=== PATIENT | female | born 1955 | race Two or more races ===

== ENCOUNTER 2020-11-25 21:07 | Inpatient (IN) | payer OTHER ==
[~2020-11-25] VITALS: Ht 152.4 cm; Wt 71.5 kg
[2020-11-25 22:12] LABS: Hematocrit 42.8 % (36.0-46.0); Mean Corpuscular Hemoglobin 31.8 pg (28.0-32.0); Mean Corpuscular Hgb Conc. 35.1 g/dL (32.0-36.0); Mean Corpuscular Volume 90.8 fL (80.0-100.0); Platelet Count (auto) 233 10^3/uL (140-450); Red Blood Cells 4.71 10^6/uL (4.0-5.20); Red Cell Distribution Width 13.6 % (11.8-14.3); White Blood Cell 8.5 10^3/uL (4.4-10.8)
[2020-11-25 22:19] LABS: Basophils % (manual) 0 (0.0-2.0); Blast Cells 0; Metamyelocytes % 0; Myelocytes % 0; Promyelocytes % 0; Reactive Lymphocytes 0
[2020-11-25 22:33] LABS: INR 1.01 (0.9-1.15); Partial Thromboplastin Time 25.8 sec (23.0-31.2)
[2020-11-25 22:34] LABS: Band Neutrophils % (manual) 3; Eosinophils % (manual) 2 (0-7); Lymphocytes % (manual) 55 (10.0-50.0); Monocytes % (manual) 3 (0-12)
[2020-11-25 22:37] LABS: Magnesium 2.4 mg/dL (1.6-2.6)
[2020-11-25 22:41] LABS: Anion Gap 8 (5-15); Blood Urea Nitrogen 15 mg/dL (7-18); Calcium 9.8 mg/dL (8.5-10.1); Carbon Dioxide 27 mmol/L (21-32); Chloride 105 mmol/L (98-107); Glucose 116 mg/dL (74-106); Potassium 3.7 mmol/L (3.5-5.1); Sodium 140 mmol/L (136-145)
[2020-11-25 22:48] LABS: Alanine Aminotransferase 30 U/L (13-56); Alkaline Phosphatase 127 U/L (45-117); Aspartate Aminotransferase 12 U/L (15-37); BUN/Creatinine Ratio 21.7; Bilirubin, Total 0.3 mg/dL (0.2-1.0); GFR African American 110 mL/min; GFR Non-African American 91 mL/min; Total Protein 7.8 g/dL (6.4-8.2)
[2020-11-26] MEDS ORDERED: levoFLOXacin 750MG 150 ML IV ONE (02:15)
[2020-11-26] MEDS ORDERED: metroNIDAZOLE 500MG/100ML 100 ML IV ONE (02:15)
[2020-11-26] MEDS ORDERED: ONDANSETRON HCL 4 MG/2 ML VIAL IV ONE (02:30)
[2020-11-26] MEDS ORDERED: MORPHINE SULFATE 4 MG/ML SYR/VIAL IV ONE (02:30)
[2020-11-26] MEDS ORDERED: SODIUM CHLORIDE 0.9% 1,000 ML IV ONE (02:30)
[2020-11-26] MEDS: D5W/SOD CHL 0.45% 1,000 ML IV SCH ×2 (05:00→18:09)
[2020-11-26] MEDS ORDERED: ONDANSETRON HCL 4 MG/2 ML VIAL IV PRN (05:00)
[2020-11-26] MEDS ORDERED: MORPHINE SULF INJ 2 MG/ML SYRINGE 1ML IV PRN (05:00)
[2020-11-26] MEDS ORDERED: HYDROcodone-ACET 5/325MG TAB PO PRN (05:00)
[2020-11-26] MEDS ORDERED: NITROGLYCERIN 0.4 MG SL TAB SL PRN (05:00)
[2020-11-26] MEDS ORDERED: hydrALAZINE HCL 20 MG/ML VL IV PRN (05:15)
[2020-11-26] MEDS: metroNIDAZOLE 500MG/100ML 100 ML IV SCH ×2 (05:38→14:03)
[2020-11-26 07:20] LABS: Hematocrit 39.4 % (36.0-46.0); Hemoglobin 13.4 g/dL (12.2-16.2); Mean Corpuscular Hemoglobin 31.3 pg (28.0-32.0); Mean Corpuscular Volume 92.1 fL (80.0-100.0); Platelet Count (auto) 203 10^3/uL (140-450); Red Blood Cells 4.27 10^6/uL (4.0-5.20); White Blood Cell 7.4 10^3/uL (4.4-10.8)
[2020-11-26 07:39] LABS: Band Neutrophils % (manual) 0; Basophils % (manual) 0 (0.0-2.0); Blast Cells 0; Myelocytes % 0; Promyelocytes % 0; Reactive Lymphocytes 0
[2020-11-26 07:44] LABS: Albumin 3.2 g/dL (3.4-5.0); Calcium 8.4 mg/dL (8.5-10.1); Potassium 3.7 mmol/L (3.5-5.1)
[2020-11-26 07:47] LABS: BUN/Creatinine Ratio 23.2; Bilirubin, Total 0.4 mg/dL (0.2-1.0); Total Protein 6.3 g/dL (6.4-8.2)
[2020-11-26 08:21] LABS: Eosinophils % (manual) 2 (0-7); Lymphocytes % (manual) 67 (10.0-50.0); Metamyelocytes % 2; Monocytes % (manual) 2 (0-12)
[2020-11-26 08:39] VITALS: BP 112/68
[2020-11-26] MEDS: cefTRIAXone 1GM/50ML D5W 50 ML IV SCH (08:45)
[2020-11-26] MEDS: FAMOTIDINE (10MG/ML) 2ML VL IV SCH (08:58)
[2020-11-26 13:00] VITALS: BP 124/74
[2020-11-26] MEDS ORDERED: IOHEXOL 300 MG/ML 100ML BOTTLE IJ ONE (15:09)
[2020-11-26 17:00] VITALS: BP 134/83
[2020-11-26] MEDS ORDERED: ALBUMIN 25% 50 ML IV ONE (20:09)
[2020-11-26 21:25] VITALS: BP 142/71
[2020-11-27] MEDS: metroNIDAZOLE 500MG/100ML 100 ML IV SCH ×4 (00:03→21:31)
[2020-11-27] MEDS: MORPHINE SULFATE 4 MG/ML SYR/VIAL IV PRN (00:04)
[2020-11-27 04:59] VITALS: BP 109/72
[2020-11-27 06:14] LABS: Basophils # (auto) 0 10 ^3/uL (0-0.2); Basophils % (auto) 0.2 % (0.0-2.0); Eosinophils # (auto) 0.2 10 ^3/uL (0-0.8); Hematocrit 40.8 % (36.0-46.0); Hemoglobin 13.9 g/dL (12.2-16.2); Lymphocytes # (auto) 3.1 10 ^3/uL (0.4-5.4); Lymphocytes % (auto) 49.6 % (10.0-50.0); Mean Corpuscular Hemoglobin 31.3 pg (28.0-32.0); Mean Corpuscular Hgb Conc. 34.2 g/dL (32.0-36.0); Mean Corpuscular Volume 91.5 fL (80.0-100.0); Monocytes # (auto) 0.5 10 ^3/uL (0-1.3); Monocytes % (auto) 7.8 % (0.0-12.0); Neutrophils # (auto) 2.5 10 ^3/uL (1.6-8.6); Neutrophils % (auto) 39.4 % (37.0-80.0); Nucleated Red Blood Cells % 0.2 %; Platelet Count (auto) 200 10^3/uL (140-450); Red Blood Cells 4.46 10^6/uL (4.0-5.20); Red Cell Distribution Width 13.8 % (11.8-14.3); White Blood Cell 6.3 10^3/uL (4.4-10.8)
[2020-11-27 06:30] LABS: Albumin 3.4 g/dL (3.4-5.0); Calcium 8.6 mg/dL (8.5-10.1); Potassium 3.8 mmol/L (3.5-5.1)
[2020-11-27 06:34] LABS: BUN/Creatinine Ratio 14.9; Bilirubin, Total 0.5 mg/dL (0.2-1.0); Total Protein 6.7 g/dL (6.4-8.2)
[2020-11-27] MEDS: D5W/SOD CHL 0.45% 1,000 ML IV SCH ×3 (06:54→21:31)
[2020-11-27] MEDS: FAMOTIDINE (10MG/ML) 2ML VL IV SCH (09:11)
[2020-11-27] MEDS: cefTRIAXone 1GM/50ML D5W 50 ML IV SCH (09:11)
[2020-11-27 09:13] VITALS: BP 113/70
[2020-11-27 13:00] VITALS: BP 133/79
[2020-11-27 16:50] VITALS: BP 114/57
[2020-11-27] MEDS: ACETAMINOPHEN 325 MG TAB PO PRN (20:14)
[2020-11-27 22:00] VITALS: BP 128/78
[2020-11-28 05:00] VITALS: BP 144/72
[2020-11-28] MEDS: metroNIDAZOLE 500MG/100ML 100 ML IV SCH ×3 (05:32→21:37)
[2020-11-28 08:00] VITALS: BP 139/75
[2020-11-28] MEDS ORDERED: ADENOSINE 57 MG in GIVE UN-DILUTED 0 ML IV STA (08:38)
[2020-11-28 09:26] VITALS: BP 168/93
[2020-11-28] MEDS: D5W/SOD CHL 0.45% 1,000 ML IV SCH (10:48)
[2020-11-28] MEDS: FAMOTIDINE (10MG/ML) 2ML VL IV SCH (10:48)
[2020-11-28] MEDS: cefTRIAXone 1GM/50ML D5W 50 ML IV SCH (10:48)
[2020-11-28 12:01] VITALS: BP 148/80
[2020-11-28 16:00] VITALS: BP 145/81
[2020-11-28 22:00] VITALS: BP 143/89
[2020-11-29 05:08] VITALS: BP 122/65
[2020-11-29] MEDS: metroNIDAZOLE 500MG/100ML 100 ML IV SCH ×3 (05:32→21:33)
[2020-11-29] MEDS: D5W/SOD CHL 0.45% 1,000 ML IV SCH ×2 (05:32→13:23)
[2020-11-29 08:15] VITALS: BP 122/68
[2020-11-29 09:11] VITALS: BP 122/68
[2020-11-29] MEDS: cefTRIAXone 1GM/50ML D5W 50 ML IV SCH (09:20)
[2020-11-29] MEDS: FAMOTIDINE (10MG/ML) 2ML VL IV SCH (09:20)
[2020-11-29] MEDS: MORPHINE SULFATE 4 MG/ML SYR/VIAL IV PRN ×2 (09:21→13:24)
[2020-11-29] MEDS: BUPIVACAINE 0.25% INJ 50ML VIAL ONE ×2 (09:23→11:04)
[2020-11-29] MEDS ORDERED: MEPERIDINE HCL (25 MG/ML) 1ML VIAL ONE (09:49)
[2020-11-29] MEDS ORDERED: ROCURONIUM 10MG/ML 10ML VIAL IV ONE (09:50)
[2020-11-29] MEDS ORDERED: MIDAZOLAM HCL 1MG/1ML-2 ML VIAL ONE (09:50)
[2020-11-29] MEDS ORDERED: GLYCOPYRROLATE 0.2 MG/ML 1ML VIAL ONE (09:50)
[2020-11-29] MEDS ORDERED: fentaNYL CITRATE 100 MCG/2 ML VL ONE (09:50)
[2020-11-29] MEDS ORDERED: SODIUM CHLORIDE LOCK 20 ML ONE (09:50)
[2020-11-29] MEDS ORDERED: NEOSTIGMINE 1 MG/ML INJ (10mg/10ML VIAL) ONE (09:50)
[2020-11-29] MEDS ORDERED: ONDANSETRON HCL 4 MG/2 ML VIAL ONE (09:50)
[2020-11-29] MEDS ORDERED: ceFAZolin 1GM/50ML 50 ML IV ONE (09:56)
[2020-11-29 16:11] VITALS: BP 110/64
[2020-11-29] MEDS: ACETAMINOPHEN 325 MG TAB PO PRN (21:33)
[2020-11-29 22:00] VITALS: BP 126/74
[2020-11-30 05:03] VITALS: BP 115/67
[2020-11-30] MEDS: metroNIDAZOLE 500MG/100ML 100 ML IV SCH (05:16)
[2020-11-30 07:48] LABS: Basophils # (auto) 0 10 ^3/uL (0-0.2); Basophils % (auto) 0.1 % (0.0-2.0); Eosinophils # (auto) 0.1 10 ^3/uL (0-0.8); Hematocrit 40.5 % (36.0-46.0); Hemoglobin 13.8 g/dL (12.2-16.2); Lymphocytes # (auto) 2.9 10 ^3/uL (0.4-5.4); Lymphocytes % (auto) 33.4 % (10.0-50.0); Mean Corpuscular Hemoglobin 31.1 pg (28.0-32.0); Mean Corpuscular Hgb Conc. 34.1 g/dL (32.0-36.0); Mean Corpuscular Volume 91.5 fL (80.0-100.0); Monocytes # (auto) 0.7 10 ^3/uL (0-1.3); Monocytes % (auto) 7.7 % (0.0-12.0); Neutrophils # (auto) 5.1 10 ^3/uL (1.6-8.6); Neutrophils % (auto) 57.8 % (37.0-80.0); Platelet Count (auto) 205 10^3/uL (140-450); Red Blood Cells 4.43 10^6/uL (4.0-5.20); Red Cell Distribution Width 13.9 % (11.8-14.3); White Blood Cell 8.8 10^3/uL (4.4-10.8)
[2020-11-30 08:02] LABS: Potassium 3.3 mmol/L (3.5-5.1)
[2020-11-30 08:15] VITALS: BP 117/73
[2020-11-30 08:15] LABS: Albumin 3.3 g/dL (3.4-5.0); BUN/Creatinine Ratio 17.2; Bilirubin, Total 0.8 mg/dL (0.2-1.0); Calcium 8.2 mg/dL (8.5-10.1); Total Protein 6.6 g/dL (6.4-8.2)
[2020-11-30 08:57] VITALS: BP 117/73
[2020-11-30] MEDS: cefTRIAXone 1GM/50ML D5W 50 ML IV SCH (08:59)
[2020-11-30] MEDS ORDERED: HYDR-4902 PO (10:27)
[2020-11-30 12:04] VITALS: BP 117/73
== END 2020-11-30 13:08 | disposition home or self-care (01) | DRG 419 ==
LOC: ER 21:07 → TELE 21:08 → TELE-CENTR 11-26 06:41
PROVIDERS: ADMIT Nurse Practitioner Family; ATTEND Hospitalist
PROC: 0FT44ZZ Resection of Gallbladder, Percutaneous Endoscopic Approach (ICD-10-PCS; principal; 2020-11-29 09:58)
DX: K80.12 Calculus of gallbladder with acute and chronic cholecystitis without obstruction (principal); K76.0 Fatty (change of) liver, not elsewhere classified; D17.71 Benign lipomatous neoplasm of kidney; I10 Essential (primary) hypertension; E66.9 Obesity, unspecified; Z71.3 Dietary counseling and surveillance; Z68.29 Body mass index [BMI] 29.0-29.9, adult; Z20.822 Contact with and (suspected) exposure to COVID-19; R73.03 Prediabetes; E78.5 Hyperlipidemia, unspecified; Z82.49 Family history of ischemic heart disease and other diseases of the circulatory system
CPT/HCPCS: 36415; 71045; 74177; 76705; 78452; 80053; 83690; 83735; 83880; 84484; 85007; 85025; 85027; 85610; 85730; 86850; 86900; 86901; 87426; 93005; 93017; 93306; 96365; 96366; 96368; 96375; G0378; J0153; J0690; J0696; J1956; J2250; J2405; J3490

== ENCOUNTER 2021-06-06 10:52 | Emergency (ER) | payer OTHER ==
[~2021-06-06] VITALS: Ht 154.9 cm; Wt 67.1 kg
[~2021-06-06 10:52] MED LIST: HYDR-4902 PO
[2021-06-06] MEDS ORDERED: SODIUM CHLORIDE 0.9% 500 ML IVB ONE (11:15)
[2021-06-06] MEDS ORDERED: KETOROLAC TROMETH 30 MG/ML 1ML VIAL IV ONE (11:15)
[2021-06-06] MEDS ORDERED: ONDANSETRON HCL 4 MG/2 ML VIAL IV ONE (11:15)
[2021-06-06 12:00] LABS: Urine Bacteria NONE SEEN /hpf (None Seen); Urine Blood Negative /uL (Negative); Urine Hyaline Cast FEW /lpf (0 - 2); Urine Specific Gravity 1.007 (1.001-1.035); Urine WBC 3 /hpf (0 - 5)
[2021-06-06 12:02] LABS: Basophils # (auto) 0 10 ^3/uL (0-0.2); Basophils % (auto) 0.1 % (0.0-2.0); Eosinophils # (auto) 0 10 ^3/uL (0-0.8); Eosinophils % (auto) 0.6 % (0.0-7.0); Hematocrit 45.7 % (36.0-46.0); Hemoglobin 15.2 g/dL (12.2-16.2); Lymphocytes # (auto) 3.7 10 ^3/uL (0.4-5.4); Lymphocytes % (auto) 46.7 % (10.0-50.0); Mean Corpuscular Hemoglobin 31.1 pg (28.0-32.0); Mean Corpuscular Hgb Conc. 33.3 g/dL (32.0-36.0); Mean Corpuscular Volume 93.3 fL (80.0-100.0); Monocytes # (auto) 0.5 10 ^3/uL (0-1.3); Monocytes % (auto) 6.5 % (0.0-12.0); Neutrophils # (auto) 3.7 10 ^3/uL (1.6-8.6); Neutrophils % (auto) 46.1 % (37.0-80.0); Nucleated Red Blood Cells % 0.1 %; Red Blood Cells 4.89 10^6/uL (4.0-5.20); Red Cell Distribution Width 13.9 % (11.8-14.3); White Blood Cell 7.9 10^3/uL (4.4-10.8)
[2021-06-06 12:18] LABS: Albumin 3.7 g/dL (3.4-5.0); Potassium 3.9 mmol/L (3.5-5.1)
[2021-06-06 12:21] LABS: BUN/Creatinine Ratio 18.5; Bilirubin, Total 0.3 mg/dL (0.2-1.0); Total Protein 7.4 g/dL (6.4-8.2)
[2021-06-06 13:41] VITALS: BP 170/86
== END 2021-06-06 13:55 | disposition home or self-care (01) ==
LOC: ER 10:52
DX: R10.31 Right lower quadrant pain (principal); E11.9 Type 2 diabetes mellitus without complications; E78.5 Hyperlipidemia, unspecified; I10 Essential (primary) hypertension; Z90.49 Acquired absence of other specified parts of digestive tract; Z79.899 Other long term (current) drug therapy
CPT/HCPCS: 36415; 74176; 80053; 81001; 83690; 85025; 96361; 96374; 96375; 99284; J1885; J2405; J7040

== ENCOUNTER 2021-11-16 14:44 | Emergency (ER) | payer OTHER ==
[~2021-11-16] VITALS: Ht 154.9 cm; Wt 67.1 kg
[2021-11-16 15:54] LABS: Basophils # (auto) 0 10 ^3/uL (0-0.2); Basophils % (auto) 0.2 % (0.0-2.0); Eosinophils # (auto) 0.1 10 ^3/uL (0-0.8); Hematocrit 41.3 % (36.0-46.0); Hemoglobin 14.2 g/dL (12.2-16.2); Lymphocytes # (auto) 3.7 10 ^3/uL (0.4-5.4); Lymphocytes % (auto) 50.2 % (10.0-50.0); Mean Corpuscular Hemoglobin 31.4 pg (28.0-32.0); Mean Corpuscular Hgb Conc. 34.3 g/dL (32.0-36.0); Mean Corpuscular Volume 91.5 fL (80.0-100.0); Monocytes # (auto) 0.6 10 ^3/uL (0-1.3); Monocytes % (auto) 7.8 % (0.0-12.0); Neutrophils # (auto) 2.9 10 ^3/uL (1.6-8.6); Neutrophils % (auto) 39.8 % (37.0-80.0); Nucleated Red Blood Cells % 0.2 %; Red Blood Cells 4.51 10^6/uL (4.0-5.20); Red Cell Distribution Width 13.7 % (11.8-14.3); White Blood Cell 7.4 10^3/uL (4.4-10.8)
[2021-11-16 16:06] LABS: Albumin 3.5 g/dL (3.4-5.0); Calcium 8.6 mg/dL (8.5-10.1); Potassium 3.7 mmol/L (3.5-5.1)
[2021-11-16 16:07] LABS: BUN/Creatinine Ratio 20.8
[2021-11-16 16:12] LABS: Bilirubin, Total 0.3 mg/dL (0.2-1.0)
[2021-11-16 21:59] VITALS: BP 151/89
[2021-11-16] MEDS ORDERED: HYDROcodone-ACET 5/325MG TAB PO ONE (22:00)
== END 2021-11-16 22:04 | disposition home or self-care (01) ==
LOC: ER 14:44
DX: R10.11 Right upper quadrant pain (principal); R11.0 Nausea; I10 Essential (primary) hypertension; E11.9 Type 2 diabetes mellitus without complications; E78.5 Hyperlipidemia, unspecified; Z90.49 Acquired absence of other specified parts of digestive tract; Z79.899 Other long term (current) drug therapy
CPT/HCPCS: 36415; 74176; 80053; 83690; 84484; 85025; 93005

== ENCOUNTER 2023-11-13 14:53 | Emergency (ER) | payer OTHER ==
[~2023-11-13] VITALS: Ht 154.9 cm; Wt 70.0 kg
[~2023-11-13 14:53] MED LIST changes: +BACDST PO
[2023-11-13 15:31] VITALS: O2SAT 98
[2023-11-13] MEDS: IBUPROFEN 600 MG TAB PO ONE (15:58)
[2023-11-13 16:33] LABS: Basophils # (auto) 0 10 ^3/uL (0-0.2); Basophils % (auto) 0.1 % (0.0-2.0); Eosinophils # (auto) 0.1 10 ^3/uL (0-0.8); Eosinophils % (auto) 1.6 % (0.0-7.0); Lymphocytes # (auto) 4.2 10 ^3/uL (0.4-5.4); Lymphocytes % (auto) 51.9 % (10.0-50.0); Mean Corpuscular Hgb Conc. 33.2 g/dL (32.0-36.0); Mean Corpuscular Volume 93.2 fL (80.0-100.0); Monocytes # (auto) 0.6 10 ^3/uL (0-1.3); Monocytes % (auto) 6.8 % (0.0-12.0); Neutrophils # (auto) 3.2 10 ^3/uL (1.6-8.6); Neutrophils % (auto) 39.6 % (37.0-80.0); Nucleated Red Blood Cells % 0.1 %; Red Blood Cells 4.51 10^6/uL (4.0-5.20); Red Cell Distribution Width 13.4 % (11.8-14.3); White Blood Cell 8.1 10^3/uL (4.4-10.8)
[2023-11-13 16:42] LABS: Chloride 108 mmol/L (98-107); Potassium 3.5 mmol/L (3.5-5.1); Sodium 141 mmol/L (136-145)
[2023-11-13 16:43] LABS: Anion Gap 7 (5-15); Calcium 9.3 mg/dL (8.7-10.4); Carbon Dioxide 26 mmol/L (20-30)
[2023-11-13 16:48] LABS: BUN/Creatinine Ratio 15.1 (10.0-20.0); Blood Urea Nitrogen 11 mg/dL (9-23); Glucose 97 mg/dL (74-106); Lipase 37 U/L (12-53)
[2023-11-13 16:49] LABS: Urine Bacteria FEW /hpf (None Seen); Urine Blood TRACE /uL (Negative); Urine Clarity HAZY (Clear); Urine Color Colorless (Yellow); Urine Mucus FEW (None Seen); Urine Protein, UAD Negative (Negative); Urine Specific Gravity 1.008 (1.001-1.035); Urine Urobilinogen Normal (Negative); Urine WBC 3 /hpf (0 - 5); Urine pH 5.5 (5.0-8.0)
[2023-11-13] MEDS: IOHEXOL 350 MG/ML 100ML IJ ONE (18:33)
[2023-11-13] MEDS: IOHEXOL 300 MG/ML 100ML BOTTLE IJ ONE (18:33)
[2023-11-13] MEDS ORDERED: ACE3T PO (19:34)
[2023-11-13] MEDS ORDERED: IBUP-1455 PO (19:34)
[2023-11-13] MEDS ORDERED: NITR-87 PO (19:34)
[2023-11-13] MEDS ORDERED: PHENSUP38 PR (19:34)
[2023-11-13 19:53] VITALS: BP 151/97; PULSE 74; RESP 20; TEMP 98.2
== END 2023-11-13 19:57 | disposition home or self-care (01) ==
LOC: ER 14:53
DX: K64.4 Residual hemorrhoidal skin tags (principal); N39.0 Urinary tract infection, site not specified; R10.2 Pelvic and perineal pain; I10 Essential (primary) hypertension; E11.9 Type 2 diabetes mellitus without complications; E78.5 Hyperlipidemia, unspecified; Z98.890 Other specified postprocedural states; Z79.899 Other long term (current) drug therapy
CPT/HCPCS: 36415; 74177; 80048; 81001; 83690; 85025; 99285; Q9967

== ENCOUNTER → 2024-01-10 | Outpatient (CLI) | payer OTHER ==
[~2024-01-10] MED LIST changes: +ACE3T PO; +IBUP-1455 PO; +NITR-87 PO; +PHENSUP38 PR
[2024-01-10 07:57] LABS: Urine Bacteria None Seen /hpf (None Seen)
[2024-01-10 08:31] LABS: Urine Blood 1+ /uL (Negative); Urine Clarity Clear (Clear); Urine Color Light-Yellow (Yellow); Urine Mucus FEW (None Seen); Urine Protein, UAD Negative (Negative); Urine Specific Gravity 1.021 (1.001-1.035); Urine Urobilinogen Normal (Negative); Urine WBC 3 /hpf (0 - 5); Urine pH 5.5 (5.0-9.0)
[2024-01-10 08:36] LABS: Basophils # (auto) 0 10 ^3/uL (0-0.2); Basophils % (auto) 0.1 % (0.0-2.0); Eosinophils # (auto) 0.1 10 ^3/uL (0-0.8); Eosinophils % (auto) 0.9 % (0.0-7.0); Hemoglobin 14.5 g/dL (12.2-16.2); Lymphocytes # (auto) 4.2 10 ^3/uL (0.4-5.4); Lymphocytes % (auto) 44.6 % (10.0-50.0); Mean Corpuscular Hemoglobin 30.3 pg (28.0-32.0); Mean Corpuscular Hgb Conc. 32.9 g/dL (32.0-36.0); Mean Corpuscular Volume 92.3 fL (80.0-100.0); Monocytes # (auto) 0.6 10 ^3/uL (0-1.3); Monocytes % (auto) 6.3 % (0.0-12.0); Neutrophils # (auto) 4.5 10 ^3/uL (1.6-8.6); Neutrophils % (auto) 48.1 % (37.0-80.0); Nucleated Red Blood Cells % 0.1 %; Red Blood Cells 4.76 10^6/uL (4.0-5.20); Red Cell Distribution Width 13.7 % (11.8-14.3); White Blood Cell 9.4 10^3/uL (4.4-10.8)
[2024-01-10 09:10] LABS: Alanine Aminotransferase 24 U/L (7-40); Albumin 4.6 g/dL (3.2-4.8); Alkaline Phosphatase 146 U/L (46-116); Anion Gap 5 (5-15); Aspartate Aminotransferase 17 U/L (13-40); BUN/Creatinine Ratio 14.5 (10.0-20.0); Bilirubin, Direct 0.2 mg/dL (<0.3); Bilirubin, Total 0.9 mg/dL (0.2-1.0); Blood Urea Nitrogen 10 mg/dL (9-23); Calcium 9.6 mg/dL (8.5-10.1); Carbon Dioxide 28 mmol/L (20-30); Chloride 108 mmol/L (98-107); Cholesterol 226 mg/dL (< 200); Glucose 100 mg/dL (74-106); HDL Cholesterol 62 mg/dL (40-59); LDL Cholesterol 145 mg/dL (< 100); Potassium 4.1 mmol/L (3.5-5.1); Sodium 141 mmol/L (136-145); Total Protein 7.2 g/dL (5.7-8.2); Triglycerides 96 mg/dL (< 150)
== END | disposition home or self-care (01) ==
LOC: LAB 07:49
PROVIDERS: ATTEND Internal Medicine Hematology & Oncology
DX: Z00.00 Encounter for general adult medical examination without abnormal findings (principal); E66.09 Other obesity due to excess calories; R82.90 Unspecified abnormal findings in urine; Z79.899 Other long term (current) drug therapy
CPT/HCPCS: 36415; 80048; 80061; 80076; 81001; 83036; 83615; 85025; 87086

== ENCOUNTER → 2024-05-13 | Outpatient (CLI) | payer OTHER ==
[2024-05-13 08:09] LABS: Basophils # (auto) 0 10 ^3/uL (0-0.2); Basophils % (auto) 0.2 % (0.0-2.0); Eosinophils # (auto) 0.2 10 ^3/uL (0-0.8); Eosinophils % (auto) 2.1 % (0.0-7.0); Hematocrit 43.2 % (36.0-46.0); Hemoglobin 14.8 g/dL (12.2-16.2); Lymphocytes # (auto) 3.5 10 ^3/uL (0.4-5.4); Lymphocytes % (auto) 47.6 % (10.0-50.0); Mean Corpuscular Hemoglobin 31.6 pg (28.0-32.0); Mean Corpuscular Hgb Conc. 34.2 g/dL (32.0-36.0); Mean Corpuscular Volume 92.4 fL (80.0-100.0); Monocytes # (auto) 0.5 10 ^3/uL (0-1.3); Monocytes % (auto) 6.7 % (0.0-12.0); Neutrophils # (auto) 3.2 10 ^3/uL (1.6-8.6); Neutrophils % (auto) 43.4 % (37.0-80.0); Platelet Count (auto) 227 10^3/uL (140-450); Red Blood Cells 4.67 10^6/uL (4.0-5.20); Red Cell Distribution Width 13.4 % (11.8-14.3); White Blood Cell 7.4 10^3/uL (4.4-10.8)
[2024-05-13 08:42] LABS: Creatinine, Urine 118.36 mg/dL (30.0-125.0); Protein, Urine 17.8 mg/dL (0.0-11.9); Urine Protein/Creatinine Ratio 0.15
[2024-05-13 08:47] LABS: Alanine Aminotransferase 22 U/L (7-40); Albumin 4.5 g/dL (3.2-4.8); Alkaline Phosphatase 116 U/L (46-116); Anion Gap 6 (5-15); Aspartate Aminotransferase 13 U/L (13-40); BUN/Creatinine Ratio 16.9 (10.0-20.0); Blood Urea Nitrogen 12 mg/dL (9-23); Calcium 9.4 mg/dL (8.7-10.4); Carbon Dioxide 27 mmol/L (20-30); Chloride 108 mmol/L (98-107); Cholesterol 191 mg/dL (< 200); Glucose 112 mg/dL (74-106); LDL Cholesterol 124 mg/dL (< 100); Potassium 4.8 mmol/L (3.5-5.1); Sodium 141 mmol/L (136-145); Triglycerides 88 mg/dL (< 150)
[2024-05-13 08:48] LABS: Bilirubin, Total 0.7 mg/dL (0.2-1.0); HDL Cholesterol 56 mg/dL (40-59)
== END | disposition home or self-care (01) ==
LOC: LAB 07:37
PROVIDERS: ATTEND Internal Medicine Hematology & Oncology
DX: I10 Essential (primary) hypertension (principal); E78.5 Hyperlipidemia, unspecified; D72.820 Lymphocytosis (symptomatic)
CPT/HCPCS: 36415; 80053; 80061; 82043; 82570; 83036; 84156; 84443; 85025

== ENCOUNTER → 2024-09-09 | Outpatient (CLI) | payer OTHER ==
[2024-09-09 08:15] LABS: Basophils # (auto) 0 10 ^3/uL (0-0.2); Basophils % (auto) 0.3 % (0.0-2.0); Eosinophils # (auto) 0.1 10 ^3/uL (0-0.8); Eosinophils % (auto) 1.3 % (0.0-7.0); Hematocrit 44.2 % (36.0-46.0); Hemoglobin 14.7 g/dL (12.2-16.2); Lymphocytes # (auto) 3.4 10 ^3/uL (0.4-5.4); Mean Corpuscular Hemoglobin 30.9 pg (28.0-32.0); Mean Corpuscular Hgb Conc. 33.2 g/dL (32.0-36.0); Mean Corpuscular Volume 92.9 fL (80.0-100.0); Monocytes # (auto) 0.5 10 ^3/uL (0-1.3); Monocytes % (auto) 6.4 % (0.0-12.0); Neutrophils # (auto) 3.1 10 ^3/uL (1.6-8.6); Platelet Count (auto) 223 10^3/uL (140-450); Red Blood Cells 4.75 10^6/uL (4.0-5.20); White Blood Cell 7.1 10^3/uL (4.4-10.8)
[2024-09-09 08:48] LABS: Cholesterol 189 mg/dL (< 200); HDL Cholesterol 58 mg/dL (40-59)
[2024-09-09 08:49] LABS: LDL Cholesterol 123 mg/dL (< 100); Triglycerides 155 mg/dL (< 150)
[2024-09-09 09:02] LABS: Creatinine, Urine 79.83 mg/dL (30.0-125.0)
== END | disposition home or self-care (01) ==
LOC: LAB 07:54
PROVIDERS: ATTEND Internal Medicine Hematology & Oncology
DX: E11.9 Type 2 diabetes mellitus without complications (principal)
CPT/HCPCS: 36415; 80061; 82043; 82570; 83036; 84439; 84443; 85025

== ENCOUNTER → 2024-09-17 | Outpatient (CLI) | payer OTHER | END | disposition home or self-care (01) | LOC: LAB 10:01 | PROVIDERS: ATTEND Internal Medicine Hematology & Oncology | DX: E11.9 Type 2 diabetes mellitus without complications (principal) | CPT/HCPCS: 82270 ==

== ENCOUNTER 2024-10-09 16:37 | Emergency (ER) | payer OTHER ==
[~2024-10-09] VITALS: Ht 154.9 cm; Wt 67.8 kg
--- NOTE | 2024-10-09 16:57 | ED.PDOC ---
GI ASSESSMENT HPI Comments 69-year-old female presents with a chief complaint of abdominal pain x 4 days with associated flank pain, nausea, and vomiting. Patient states that her pain is localized to her right flank, radiates to the RUQ abdomen region, describes as cramping, and rates her pain a 8/10. Patient mentions that she is also having episodes of nausea with some emesis episodes. Patient denies any injuries or trauma prior to onset of symptoms. No other symptoms or modifying factors present at this time. Vital signs were stable on arrival. Chief Complaint: Abdominal Pain Time Seen by MD: 16:50 Primary Care Provider: BREANNA Reviewed Notes: Medications, Allergies Allergies: Coded Allergies: NO KNOWN ALLERGIES (Unverified , 11/25/20) Home Meds Active Scripts Acetaminophen W/ Codeine (Tylenol W/Cod #3) 1 Tab Tb, 1 TAB PO Q6HP PRN, #10 TAB Prov:MISHA LUTZ PAC 11/13/23 Phenylephrine-Shark Liver Oil- (Hemorrhoidal Suppositorie 0.25-3-85.5 %) 1 Sup Sup, 1 SUP [place] BID, #20 SUPP Prov:MISHA LUTZ PAC 11/13/23 Ibuprofen Micronized (Ibuprofen) 800 Mg Tab, 800 MG PO Q8HP PRN, #30 TAB Prov:MISHA LUTZ PAC 24 Nitrofurantoin Monohydrate Mac (Macrobid) 100 Mg Cap, 100 MG PO BID for 5 Days, #10 CAP Prov:MISHA LUTZ PAC 24 Sulfamethoxazole W/Trimethopri (Bactrim Ds Tablet) 1 Tab Tb, 1 TAB PO BID for 7 Days, #14 TAB Prov:LANE KIM NP 01/13/23 Hydrocodone-Acetaminophen (Hydrocodone Bitartrate/AC 5-325 mg) 1 Tab Tab, 1 TAB PO Q6HPRN PRN, #14 TAB Prov:NHUNG MORA MD 11/30/20 Information Source: Patient Mode of Arrival: Ambulatory Timing: Days Duration: Since onset Prehospital treatment: None Quality: Cramping Vomitus: Food Particles Stool: Normal Severity: Moderate Recent: None Recent Hx of: None Pain Location: RUQ, RLQ Associated sign and symptoms: Abdominal Pain Past Medical History PAST MEDICAL HISTORY: DM, High Lipids, HTN Surgical History: Cholecystectomy 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 Family History Family History: No family hx of Cancer, No family hx of DM, No family hx of Heart donna, No family hx of HTN, Family hx of HTN Social History Smoker: Non-Smoker Alcohol: Denies ETOH Use Drugs: Denies Drug Use Lives In: Home Constitutional: denies: chills, diaphoresis, fatigue, fever, malaise, sweats, weakness, others EENTM: denies: blurred vision, double vision, ear bleeding, ear discharge, ear drainage, ear pain, ear ringing, eye pain, eye redness, hearing loss, mouth pain, mouth swelling, nasal discharge, nose bleeding, nose congestion, nose pain, photophobia, tearing, throat pain, throat swelling, voice changes, others Respiratory: denies: cough, hemoptysis, orthopnea, SOB at rest, shortness of breath, SOB with excertion, stridor, wheezing, others Cardiovascular: denies: chest pain, dizzy spells, diaphoresis, Dyspnea on exertion, edema, irregular heart beat, left arm pain, lightheadedness, palpitations, PND, syncope, others Gastrointestinal: reports: abdominal pain, nausea, vomiting; denies: abdomen distended, blood streaked bowels, constipated, diarrhea, dysphagia, difficulty swallowing, hematemesis, melena, poor appetite, poor fluid intake, rectal blee ding, rectal pain, others Genitourinary: reports: flank pain; denies: abnormal vagina bleeding, burning, dyspareunia, dysuria, frequency, hematuria, incontinence, pain, , vagina discharge, urgency, others Neurological: denies: dizziness, fainting, headache, left sided numbness, left sided weakness, numbness, paresthesia, pre-existing deficit, right sided numbness, right sided weakness, seizure, speech problems, tingling, tremors, weakness, others Musculoskeletal: denies: back pain, gout, joint pain, joint swelling, muscle pain, muscle stiffness, neck pain, others Integumetry: denies: bruises, change in color, change in hair/nails, dryness, laceration, lesions, lumps, rash, wounds, others Allergic/Immunocompromised: denies: Difficulty Healing, Frequent Infections, Hives, Itching, others Hematologic/Lymphatic: denies: anemia, blood clots, easy bleeding, easy bruising, swollen glands, others Endocrine: denies: excessive hunger, excessive sweating, excessive thirst, excessive urination, flushing, intolerance to cold, intolerance to heat, unexplained weight gain, unexplained weight loss, others Psychiatric: denies: anxiety, bipolar disorder, depression, hopeless, panic disorder, schizophrenia, sleepless, suicidal, others All Other Systems: Reviewed and Negative Physical Exam General Appearance: Moderate Distress (Distress due to flank pain concerns.), Normal HEENT: Normal ENT Inspection, Pharynx Normal, TMs Normal Neck: Full Range of Motion, Non-Tender, Normal, Normal Inspection Respiratory: Chest Non-Tender, Lungs Clear, No Accessory Muscle Use, No Respiratory Distress, Normal Breath Sounds Cardiovascular: No Edema, No JVD, No Murmur, No Gallop, Normal Peripheral Pulses, Regular Rate/Rhythm Breast Exam: Deferred Gastrointestinal: Other (Diffuse right-sided flank pain radiating to the upper and lower right-sided abdomen. Diffuse CVA tenderness that is relatively nonspecific. No signs of trauma.) Genitalia: Deferred Pelvic: Deferred Rectal: Deferred Extremities: No calf tenderness, Normal capillary refill, Normal inspection, Normal range of motion, Non-tender, No pedal edema Neurologic: Alert, No Motor Deficits, Normal Affect, Normal Mood, No Sensory Deficits Cerebellar Function: Normal Reflexes: Normal Skin: Dry, Normal Color, Warm Lymphatic: No Adenopathy Was a procedure done? Was a procedure done?: No GI differential Dx Differential Diagnosis: Appendicitis, Bowel Obstruction, Cholangitis, Cholecystitis, Gastritis/PUD, Gastroenteritis, Pancreatitis X-Ray, Labs, Meds, VS Vital Signs Date Time Temp Pulse Resp B/P (MAP) Pulse Ox O2 Delivery O2 Flow Rate FiO2 10/09/24 20:08 63 18 97 Room Air* 0 21 10/09/24 20:07 97.7 63 18 150/82 (104) 97 97.7 10/09/24 17:13 72 18 140/70 (93) 97 10/09/24 17:13 72 18 97 Room Air 10/09/24 16:45 98.3 75 16 155/111 (126) 97 Lab Test 10/09/24 17:09 10/09/24 00:00 Range/Units White Blood Count 9.9 4.4-10.8 10^3/uL Red Blood Count 4.86 4.0-5.20 10^6/uL Hemoglobin 14.9 12.2-16.2 g/dL Hematocrit 45.0 36.0-46.0 % Mean Corpuscular Volume 92.8 80.0-100.0 fL Mean Corpuscular Hemoglobin 30.7 28.0-32.0 pg Mean Corpuscular Hemoglobin Concent 33.1 32.0-36.0 g/dL Red Cell Distribution Width 13.9 11.8-14.3 % Platelet Count 229 140-450 10^3/uL Mean Platelet Volume 7.8 6.9-10.8 fL Neutrophils (%) (Auto) 38.8 37.0-80.0 % Lymphocytes (%) (Auto) 52.5 H 10.0-50.0 % Monocytes (%) (Auto) 7.4 0.0-12.0 % Eosinophils (%) (Auto) 1.0 0.0-7.0 % Basophils (%) (Auto) 0.3 0.0-2.0 % Neutrophils # (Auto) 3.9 1.6-8.6 10 ^3/uL Lymphocytes # (Auto) 5.2 0.4-5.4 10 ^3/uL Monocytes # (Auto) 0.7 0-1.3 10 ^3/uL Eosinophils # (Auto) 0.1 0-0.8 10 ^3/uL Basophils # (Auto) 0 0-0.2 10 ^3/uL Nucleated Red Blood Cells 0.2 % Sodium Level 140 136-145 mmol/L Potassium Level 4.0 3.5-5.1 mmol/L Chloride Level 106 98-107 mmol/L Carbon Dioxide Level 28 20-31 mmol/L Anion Gap 6 5-15 Blood Urea Nitrogen 14 9-23 mg/dL Creatinine 0.79 0.550-1.02 mg/dL Glomerular Filtration Rate Calc 81 >90 mL/min BUN/Creatinine Ratio 17.7 10.0-20.0 Serum Glucose 101 74-106 mg/dL Calcium Level 9.8 8.7-10.4 mg/dL Urine Color Light-yellow Yellow Urine Clarity Clear Clear Urine pH 5.5 5.0-9.0 Urine Specific Odell 1.020 1.001-1.035 Urine Protein Negative Negative Urine Ketones Negative Negative Urine Blood Trace H Negative /uL Urine Nitrite Negative Negative Urine Bilirubin Negative Negative Urine Urobilinogen Normal Negative mg/dL Urine Leukocyte Esterase 2+ Negative /uL Urine RBC 4 0 - 4 /hpf Urine Microscopic WBC 16 H 0-5 /HPF Urine Squamous Epithelial Cells Few <5 /hpf Urine Bacteria None seen None Seen /hpf Urine Mucus Few None Seen Urine Glucose Normal Normal mg/dL Current Medications Medications (Trade) Dose Ordered Sig/Florinda Route Start Time Stop Time Status Last Admin Ketorolac Tromethamine (Toradol Injection) 15 mg ONCE ONCE IM 10/09/24 17:00 10/09/24 17:01 DC 10/09/24 17:24 Ondansetron HCl (Zofran Po) 4 mg ONCE ONCE PO 10/09/24 17:00 10/09/24 17:01 DC 10/09/24 17:25 X-Ray, Labs, Meds, VS Comment All studies performed the ED were evaluated by me personally. Serum laboratories were unremarkable while patient's urinalysis confirmed a UTI. CT of the abdomen and pelvis was unremarkable for any acute findings. Patient was given 1st dose of antibiotics prior to discharge. Advised patient utilize antibiotics as directed until completion as well as good hydration throughout illness event. Time of 1ST Reevaluation: 21:00 Reevaluation 1ST: Improved Consultation: PCP Patient Education/Counseling: Diagnosis, Treatment, Prognosis Family Education/Counseling: Diagnosis, Treatment, Prognosis Departure 1 Departure Time of Disposition: 21:00 Impression: Primary Impression: Urinary tract infection Disposition: HOME / SELF CARE / HOMELESS Condition: Stable Additional Instructions: Advised patient utilize antibiotics as directed until completion as well as additional medication as needed. Patient should practice good hydration and healthy nutrition throughout illness event. e-Prescriptions Acetaminophen (Acetaminophen) 500 Mg Tab 500 MG PO Q4HP PRN, #20 TAB Prov: MISHA LUTZ PAC 10/09/24 Cephalexin (KEFLEX CAPSULE) 250 Mg Cp 1 CAP PO QID for 7 Days, #28 CAP Prov: MISHA LUTZ PAC 10/09/24 Discharged With: Self, Relative Critical Care Note Critical Care Time?: No Stability Stability form required: No Heart Score Heart Score: Heart Score Response (Comments) Value History N/A 0 EKG N/A 0 Age N/A 0 Risk Factors N/A 0 Troponin N/A 0 Total 0 I personally scribed for MISHA LUTZ PAC ([email or web address]) on 10/09/24 at 16:56. Electronically submitted by Nawaf Castellano ([email or web address]). MISHA LUTZ PAC Oct 09, 2024 16:56
--- NOTE | 2024-10-09 17:19 | DVH ---
CT ABDOMEN AND PELVIS WITHOUT CONTRAST CLINICAL HISTORY: Right-sided flank pain TECHNIQUE: Multiple contiguous axial images of the abdomen and pelvis without intravenous contrast. The images were reformatted degenerate coronal and sagittal reconstructions. All CT scans at this medical facility are performed using dose modulation techniques as appropriate t o a performed exam including the following:Automated exposure control was utilized; adjustment of the MA and/or KV according to patient size; and use of iterative reconstruction technique. Radiation Dose Information: CT Dose: CTDI volume is 22 mGy. Dose-length product is 1168 mGy*cm Comparison: CT ABD PELVIS WO CONTRAST on DOS: 11/16/21, CT ABD PELVIS WO CONTRAST on DOS: 06/06/21 FINDINGS: Evaluation of the abdomen and pelvis is limited without intravenous contrast. The gallbladder is surgically absent. There is a stable small left hepatic lobe cyst. The pancrea s, kidneys, adrenal glands, and spleen appear within normal limits. There is no gross evidence of abdominal lymphadenopathy. There is no free fluid or free air. The stomach grossly appears unremarkable. The small and large bowel loops demonstrate normal caliber . There are diverticula in the distal colon without evidence of acute diverticulitis. A normal-appea ring appendix is seen in the right lower quadrant abdomen. The abdominal aorta and IVC appear within normal limits. The bladder appears unremarkable for the degree of distention. Pelvic organ appears within normal santos its. There is no gross evidence of a pelvic mass. There is no free fluid collection. Stable pleural-based lipoma along the right lower lateral ry thorax. Lung bases are otherwise clear . There is no acute osseous abnormality. IMPRESSION: 1. There is no acute process in the abdomen and pelvis. 2. Distal colon diverticulosis. HS:Y
[2024-10-09 17:22] LABS: Basophils # (auto) 0 10 ^3/uL (0-0.2); Basophils % (auto) 0.3 % (0.0-2.0); Eosinophils # (auto) 0.1 10 ^3/uL (0-0.8); Hemoglobin 14.9 g/dL (12.2-16.2); Lymphocytes # (auto) 5.2 10 ^3/uL (0.4-5.4); Lymphocytes % (auto) 52.5 % (10.0-50.0); Mean Corpuscular Hemoglobin 30.7 pg (28.0-32.0); Mean Corpuscular Hgb Conc. 33.1 g/dL (32.0-36.0); Mean Corpuscular Volume 92.8 fL (80.0-100.0); Monocytes # (auto) 0.7 10 ^3/uL (0-1.3); Monocytes % (auto) 7.4 % (0.0-12.0); Neutrophils # (auto) 3.9 10 ^3/uL (1.6-8.6); Neutrophils % (auto) 38.8 % (37.0-80.0); Nucleated Red Blood Cells % 0.2 %; Platelet Count (auto) 229 10^3/uL (140-450); Red Blood Cells 4.86 10^6/uL (4.0-5.20); Red Cell Distribution Width 13.9 % (11.8-14.3); White Blood Cell 9.9 10^3/uL (4.4-10.8)
[2024-10-09] MEDS: KETOROLAC TROMETH 60MG/2ML VIAL IM ONE (17:24)
[2024-10-09 17:25] LABS: Chloride 106 mmol/L (98-107); Sodium 140 mmol/L (136-145)
[2024-10-09] MEDS: ONDANSETRON ODT 4 MG TAB PO ONE (17:25)
[2024-10-09 17:26] LABS: Anion Gap 6 (5-15); Calcium 9.8 mg/dL (8.7-10.4); Carbon Dioxide 28 mmol/L (20-31)
[2024-10-09 17:31] LABS: BUN/Creatinine Ratio 17.7 (10.0-20.0); Blood Urea Nitrogen 14 mg/dL (9-23); Glucose 101 mg/dL (74-106)
[2024-10-09 20:07] VITALS: BP 150/82; TEMP 97.7
[2024-10-09 20:08] VITALS: PULSE 63; RESP 18; O2SAT 97
[2024-10-09 20:25] LABS: Urine Bacteria None Seen /hpf (None Seen)
[2024-10-09 20:34] LABS: Urine Blood TRACE /uL (Negative); Urine Clarity Clear (Clear); Urine Color Light-Yellow (Yellow); Urine Mucus FEW (None Seen); Urine Protein, UAD Negative (Negative); Urine Squamous Epithelial Cell FEW /hpf (<5); Urine Urobilinogen Normal (Negative); Urine WBC 16 /HPF (0-5); Urine pH 5.5 (5.0-9.0)
[2024-10-09] MEDS ORDERED: CEPHALEXIN 250 MG CAP PO ONE (20:45)
[2024-10-09] MEDS ORDERED: ACET500T58 PO (21:01)
[2024-10-09] MEDS ORDERED: CEPH250C PO (21:01)
== END 2024-10-09 21:38 | disposition home or self-care (01) ==
LOC: ER 16:37
DX: N39.0 Urinary tract infection, site not specified (principal); I10 Essential (primary) hypertension; E11.9 Type 2 diabetes mellitus without complications; E78.5 Hyperlipidemia, unspecified; Z90.49 Acquired absence of other specified parts of digestive tract; Z79.899 Other long term (current) drug therapy
CPT/HCPCS: 36415; 74176; 80048; 81001; 85025; 96372; 99285; J1885; Q0162

== ENCOUNTER 2025-02-09 21:27 | Emergency (ER) | payer OTHER ==
[~2025-02-09] VITALS: Ht 154.9 cm; Wt 68.1 kg
[~2025-02-09 21:27] MED LIST changes: +ACET500T58 PO; +CEPH250C PO
--- NOTE | 2025-02-10 00:19 | DVH ---
CHEST RADIOGRAPH Indication: chest pain Technique: Single frontal view of the chest was obtained COMPARISON: CHEST PORTABLE on DOS: 11/28/20 FINDINGS: Lines and Tubes: None Lungs: 2.9 cm lateral right mid lung rounded nodular density. The lungs are otherwise clear without e vidence of focal consolidation. Pleura: No effusion. No pneumothorax. Cardiomediastinal contours: Unremarkable Bones: Unremarkable IMPRESSION: 1. No acute disease. 2. Apparent rounded pleural-based density within the lateral right mid lung measuring 2.[address] of t he thorax may be of benefit in further characterizing this finding.
--- NOTE | 2025-02-10 00:28 | ED.PDOC ---
History of Present Illness HPI Comments 69 y/o Anguillan speaking F presents for 5x day history of 8/10 nonradiating, left chest wall pain. Patient reports pain being constant following initial unprovoked and gradual onset and expresses concerns, due to her daughter passing away from breast cancer. She endorses a history of DM, HLD, HTN, and cholecy stectomy. No recent prior ailments, sick contact, strenuous activities, stressors, injuries, or travel reported. Patient denies having any shortness of breath, palpitations, nausea, vomiting, cough, congestion, fever, chills, or further associated symptoms. Chief Complaint: Rib Pain Time Seen by MD: 00:00 Primary Care Provider: BREANNA Reviewed Notes: Nurses Notes, Medications, Allergies Allergies: Coded Allergies: NO KNOWN ALLERGIES (Unverified , 11/25/20) Home Meds Active Scripts Gabapentin (Once-Daily) (Gabapentin) 300 Mg Tab, 300 MG PO Q6HP PRN, #30 TAB Prov:FERNANDO EVANS MD 02/10/25 Acetaminophen (Acetaminophen) 500 Mg Tab, 500 MG PO Q4HP PRN, #20 TAB Prov:MISHA LUTZ PAC 10/09/24 Cephalexin (KEFLEX CAPSULE) 250 Mg Cp, 1 CAP PO QID for 7 Days, #28 CAP Prov:MISHA LUTZ PAC 10/09/24 Acetaminophen W/ Codeine (Tylenol W/Cod #3) 1 Tab Tb, 1 TAB PO Q6HP PRN, #10 TAB Prov:MISHA LUTZ PAC 11/13/23 Phenylephrine-Shark Liver Oil- (Hemorrhoidal Suppositorie 0.25-3-85.5 %) 1 Sup Sup, 1 SUP [place] BID, #20 SUPP Prov:MISHA LUTZ PAC 11/13/23 Ibuprofen Micronized (Ibuprofen) 800 Mg Tab, 800 MG PO Q8HP PRN, #30 TAB Prov:MISHA LUTZ PAC 24 Nitrofurantoin Monohydrate Mac (Macrobid) 100 Mg Cap, 100 MG PO BID for 5 Days, #10 CAP Prov:MISHA LUTZ PAC 11/13/23 Sulfamethoxazole W/Trimethopri (Bactrim Ds Tablet) 1 Tab Tb, 1 TAB PO BID for 7 Days, #14 TAB Prov:LANE KIM NP 01/13/23 Hydrocodone-Acetaminophen (Hydrocodone Bitartrate/AC 5-325 mg) 1 Tab Tab, 1 TAB PO Q6HPRN PRN, #14 TAB Prov:NHUNG MORA MD 11/30/20 Information Source: Patient Mode of Arrival: Ambulatory Severity: Moderate Timing: Days Duration: Since onset Prehospital treatment: None Past Medical History PAST MEDICAL HISTORY: DM, High Lipids, HTN Surgical History: Cholecystectomy 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 Family History Family History: No family hx of Cancer, No family hx of DM, No family hx of Heart donna, No family hx of HTN, Family hx of HTN Social History Smoker: Non-Smoker Alcohol: Denies ETOH Use Drugs: Denies Drug Use Lives In: Home All Other Systems: Reviewed and Negative (Comprehensive systems review obtained and negative except for what is stated in the HPI.) Physical Exam General Appearance: No Apparent Distress, Normal HEENT: Normal ENT Inspection, Pharynx Normal, TMs Normal Neck: Full Range of Motion, Non-Tender, Normal, Normal Inspection Respiratory: Lungs Clear, No Accessory Muscle Use, No Respiratory Distress, Normal Breath Sounds, Other (left chest wall tenderness) Cardiovascular: No Edema, No JVD, No Murmur, No Gallop, Normal Peripheral Pulses, Regular Rate/Rhythm, Other (left chest wall tenderness) Breast Exam: Deferred Gastrointestinal: No Organomegaly, Non Tender, No Pulsatile Mass, Normal Bowel Sounds, Soft Genitalia: Deferred Pelvic: Deferred Rectal: Deferred Extremities: No calf tenderness, Normal capillary refill, Normal inspection, Normal range of motion, Non-tender, No pedal edema Musculoskeletal : Location: Left Extremity Location: Chest (chest wall ) Apperance: Normal, Tenderness Neurologic: Alert, azure developer II-XII nml as Tested, No Motor Deficits, Normal Affect, Normal Mood, No Sensory Deficits Cerebellar Function: Normal Reflexes: Normal Skin: Dry, Normal Color, Warm Lymphatic: No Adenopathy Was a procedure done? Was a procedure done?: No Differential Dx Considerations may include: NH, PE, ACS, URI, PNA, viral syndrome, anxiety, gastritis, musculoskeletal pain, among others X-Ray, Labs, Meds, VS Vital Signs Date Time Temp Pulse Resp B/P (MAP) Pulse Ox O2 Delivery O2 Flow Rate FiO2 02/10/25 04:27 98.8 70 14 164/92 (116) 94 98.8 02/10/25 04:21 70 14 164/92 02/10/25 03:49 75 19 175/80 02/10/25 03:30 71 17 175/80 (111) 96 02/10/25 03:21 97.4 68 16 174/96 (122) 97 97.4 02/10/25 00:34 97.6 68 16 154/92 (112) 96 97.6 02/10/25 00:32 Room Air* 0 21 02/09/25 21:27 97.8 75 20 166/73 (104) 94 97.8 Lab Test 02/10/25 01:05 02/10/25 00:13 Range/Units Troponin I High Sensitivity 3 L 3 L </=34 ng/L White Blood Count 8.8 4.4-10.8 10^3/uL Red Blood Count 4.72 4.0-5.20 10^6/uL Hemoglobin 14.6 12.2-16.2 g/dL Hematocrit 43.2 36.0-46.0 % Mean Corpuscular Volume 91.5 80.0-100.0 fL Mean Corpuscular Hemoglobin 31.0 28.0-32.0 pg Mean Corpuscular Hemoglobin Concent 33.9 32.0-36.0 g/dL Red Cell Distribution Width 13.7 11.8-14.3 % Platelet Count 224 140-450 10^3/uL Mean Platelet Volume 7.9 6.9-10.8 fL Neutrophils (%) (Auto) 43.6 37.0-80.0 % Lymphocytes (%) (Auto) 48.9 10.0-50.0 % Monocytes (%) (Auto) 6.0 0.0-12.0 % Eosinophils (%) (Auto) 1.4 0.0-7.0 % Basophils (%) (Auto) 0.1 0.0-2.0 % Neutrophils # (Auto) 3.8 1.6-8.6 10 ^3/uL Lymphocytes # (Auto) 4.3 0.4-5.4 10 ^3/uL Monocytes # (Auto) 0.5 0-1.3 10 ^3/uL Eosinophils # (Auto) 0.1 0-0.8 10 ^3/uL Basophils # (Auto) 0 0-0.2 10 ^3/uL Nucleated Red Blood Cells 0.1 % Sodium Level 142 136-145 mmol/L Potassium Level 3.8 3.5-5.1 mmol/L Chloride Level 106 98-107 mmol/L Carbon Dioxide Level 26 20-31 mmol/L Anion Gap 10 5-15 Blood Urea Nitrogen 17 9-23 mg/dL Creatinine 0.64 0.550-1.02 mg/dL Glomerular Filtration Rate Calc 96 >90 mL/min BUN/Creatinine Ratio 26.6 H 10.0-20.0 Serum Glucose 121 H 74-106 mg/dL Calcium Level 9.5 8.7-10.4 mg/dL Current Medications Medications (Trade) Dose Ordered Sig/Florinda Route Start Time Stop Time Status Last Admin Morphine Sulfate 4 mg ONCE ONCE IV 02/10/25 03:45 02/10/25 03:46 DC 02/10/25 03:49 Ondansetron HCl (Zofran) 4 mg ONCE ONCE IV 02/10/25 03:45 02/10/25 03:46 DC 02/10/25 03:48 [place] [id number] Ph: [phone] DIAGNOSTIC IMAGING Diagnostic Imaging Report : [id number] Signed PATIENT: KRYSTLE GIBSON ACCT: [id number] UNIT: [id number] : 1955 LOC: ER ROOM / BED: / AGE / SEX: 69 / F ADM STATUS: REG ER SERVICE [id number] ORDERING PHYSICIAN: FERNANDO EVANS MD PROCEDURE(s): CXRP - CHEST PORTABLE REASON: chest pain ORDER NUMBER(s): [id number], ACCESSION NUMBER(s): [id number] CHEST RADIOGRAPH Indication: chest pain Technique: Single frontal view of the chest was obtained COMPARISON: CHEST PORTABLE on DOS: 11/28/20 FINDINGS: Lines and Tubes: None Lungs: 2.9 cm lateral right mid lung rounded nodular density. The lungs are otherwise clear without evidence of focal consolidation. Pleura: No effusion. No pneumothorax. Cardiomediastinal contours: Unremarkable Bones: Unremarkable IMPRESSION: 1. No acute disease. 2. Apparent rounded pleural-based density within the lateral right mid lung measuring 2.[address] of the thorax may be of benefit in further characterizing this finding. ATED BY: NATANAEL HODGES MD DICTATED DATE/TIME: 02/10/2514 SIGNED BY: NATANAEL HODGES MD SIGNED DATE/TIME: 02/10/2514 CC: Time of 1ST Reevaluation: 00:30 Reevaluation 1ST: Unchanged Patient Education/Counseling: Diagnosis, Treatment, Need For Follow Up Family Education/Counseling: No Family Present SEPSIS Sepsis Screen Date sepsis recognized/suspect: Feb 09, 2025 Time Sepsis recognized/suspect: 2239 Recent Procedure: No On Antibiotic Therapy: No Respiratory Rate >20: No Heart Rate >90: No Temp<36 C (96.8 F) or >38.3 C: No SBP <90 or MAP <65 mmHG: No New Acute Mental Status Change: No Is the patient on CPAP, BIPAP,: No Orders/Vitals/Labs Physician Orders Electrocardigram (02/09/25 22:24) Chest Portable (02/09/25 23:57) Chest With Contrast (02/10/25 01:50) Vital Signs Date Time Temp Pulse Resp B/P (MAP) Pulse Ox O2 Delivery O2 Flow Rate FiO2 02/10/25 04:27 98.8 70 14 164/92 (116) 94 98.8 02/10/25 04:21 70 14 164/92 02/10/25 03:49 75 19 175/80 02/10/25 03:30 71 17 175/80 (111) 96 02/10/25 03:21 97.4 68 16 174/96 (122) 97 97.4 02/10/25 00:34 97.6 68 16 154/92 (112) 96 97.6 02/10/25 00:32 Room Air* 0 21 02/09/25 21:27 97.8 75 20 166/73 (104) 94 97.8 Laboratory Tests Test 02/10/25 00:13 White Blood Count 8.8 10^3/uL (4.4-10.8) Medications Medications Dose Ordered Sig/Florinda Route Start Time Stop Time Status Last Admin Dose Admin Morphine Sulfate 4 mg ONCE ONCE IV 02/10/25 03:45 02/10/25 03:46 DC 02/10/25 03:49 Ondansetron HCl 4 mg ONCE ONCE IV 02/10/25 03:45 02/10/25 03:46 DC 02/10/25 03:48 Departure 1 Departure Time of Disposition: 04:50 Impression: Primary Impression: Atypical chest pain Additional Impression: Lung mass Disposition: 01 HOME / SELF CARE / HOMELESS Condition: Stable e-Prescriptions Gabapentin (Once-Daily) (Gabapentin) 300 Mg Tab 300 MG PO Q6HP PRN, #30 TAB Prov: FERNANDO EVANS MD 02/10/25 Discharged With: Self Critical Care Note Critical Care Time?: No Stability Stability form required: No Heart Score Heart Score: Heart Score Response (Comments) Value History Moderate Suspicious 1 EKG Repolarization Disturb 1 Age >65 2 Risk Factors >3 or Hx ASHD 2 Troponin Normal limit 0 Total 6 I personally scribed for FERNANDO EVANS MD ([email or web address]) on 02/10/25 at 00:28. Electronically submitted by Shahab Calderon ([email or web address]). FERNANDO EVANS MD Feb 10, 2025 00:28
[2025-02-10 00:33] LABS: Basophils # (auto) 0 10 ^3/uL (0-0.2); Basophils % (auto) 0.1 % (0.0-2.0); Eosinophils # (auto) 0.1 10 ^3/uL (0-0.8); Eosinophils % (auto) 1.4 % (0.0-7.0); Hematocrit 43.2 % (36.0-46.0); Hemoglobin 14.6 g/dL (12.2-16.2); Lymphocytes # (auto) 4.3 10 ^3/uL (0.4-5.4); Lymphocytes % (auto) 48.9 % (10.0-50.0); Mean Corpuscular Hgb Conc. 33.9 g/dL (32.0-36.0); Mean Corpuscular Volume 91.5 fL (80.0-100.0); Monocytes # (auto) 0.5 10 ^3/uL (0-1.3); Neutrophils # (auto) 3.8 10 ^3/uL (1.6-8.6); Neutrophils % (auto) 43.6 % (37.0-80.0); Nucleated Red Blood Cells % 0.1 %; Platelet Count (auto) 224 10^3/uL (140-450); Red Blood Cells 4.72 10^6/uL (4.0-5.20); Red Cell Distribution Width 13.7 % (11.8-14.3); White Blood Cell 8.8 10^3/uL (4.4-10.8)
[2025-02-10 00:40] LABS: Chloride 106 mmol/L (98-107); Potassium 3.8 mmol/L (3.5-5.1); Sodium 142 mmol/L (136-145)
[2025-02-10 00:41] LABS: Anion Gap 10 (5-15); Calcium 9.5 mg/dL (8.7-10.4); Carbon Dioxide 26 mmol/L (20-31)
[2025-02-10 00:46] LABS: BUN/Creatinine Ratio 26.6 (10.0-20.0); Blood Urea Nitrogen 17 mg/dL (9-23); Glucose 121 mg/dL (74-106)
[2025-02-10] MEDS: IOHEXOL 300 MG/ML 100ML BOTTLE IJ ONE (03:41)
[2025-02-10] MEDS: ONDANSETRON HCL 4 MG/2 ML VIAL IV ONE (03:48)
[2025-02-10] MEDS: MORPHINE SULFATE 4 MG/ML SYR/VIAL IV ONE (03:49)
[2025-02-10 04:27] VITALS: BP 164/92; PULSE 70; RESP 14; TEMP 98.8; O2SAT 94
--- NOTE | 2025-02-10 04:34 | DVH ---
Procedure: CT CHEST WITH CONTRAST Reason for study/Clinical History: chest mass on xray, pain Comparison Study: None Exam Date: 02/10/2025 03:36 AM Radiation Dose Information: CT Dose: CTDI volume is 12.8 mGy. Dose-length product is 462.0 mGy*cm Contrast: Type of contrast: Contrast inject: Contrast wasted:0 TECHNIQUE: CT scan of the chest was performed with intravenous contrast. Coronal and sagittal reform atted images are provided. FINDINGS: Lower Neck: Visualized portions of the thyroid gland are unremarkable. Aorta and Vasculature: Normal caliber of thoracic aorta. Lymph Nodes: No enlarged intrathoracic lymph nodes. Mediastinum: Heart size is normal. There is no pericardial effusion. The esophagus is unremarkable. Lungs: There is a pleural based mass in the right middle lobe which measures 3.2 1.5 by 3.9 cm. This measures -106 Hounsfield units and is compatible with fat density mass such as a lipoma. This corresp onds to the finding on chest radiograph performed same date. 4 mm nodule in the anterior right upper lobe. Central airways: Patent. Musculoskeletal: No acute osseous abnormality. Upper abdomen: Cholecystectomy. Low attenuating mass in the left hepatic lobe not further characteriz ed on this study. IMPRESSION: 1. No evidence of acute intrathoracic abnormality identified. 2. 3.9 cm right middle lobe mass seen on chest radiograph corresponds to a lipoma. All CT scans at this medical facility are performed using dose modulation techniques as appropriate t o a performed exam including the following: Automated exposure control was utilized; adjustment of th e MA and/or KV according to patient size; and use of iterative reconstruction technique.
[2025-02-10] MEDS ORDERED: GABA300T4 PO (04:44)
== END 2025-02-10 04:55 | disposition home or self-care (01) ==
LOC: ER 21:27
DX: R07.89 Other chest pain (principal); R91.8 Other nonspecific abnormal finding of lung field; E11.9 Type 2 diabetes mellitus without complications; E78.5 Hyperlipidemia, unspecified; I10 Essential (primary) hypertension; Z90.49 Acquired absence of other specified parts of digestive tract
CPT/HCPCS: 36415; 71045; 71260; 80048; 84484; 85025; 96374; 96375; 99285; J2270; J2405; Q9967

== ENCOUNTER 2025-02-12 07:10 | Outpatient (CLI) | payer OTHER ==
[~2025-02-12 07:10] MED LIST changes: +GABA300T4 PO
[2025-02-12 07:47] LABS: Basophils # (auto) 0 10 ^3/uL (0-0.2); Basophils % (auto) 0.1 % (0.0-2.0); Eosinophils # (auto) 0.1 10 ^3/uL (0-0.8); Hematocrit 43.5 % (36.0-46.0); Hemoglobin 14.6 g/dL (12.2-16.2); Lymphocytes # (auto) 3.2 10 ^3/uL (0.4-5.4); Lymphocytes % (auto) 48.8 % (10.0-50.0); Mean Corpuscular Hemoglobin 30.6 pg (28.0-32.0); Mean Corpuscular Hgb Conc. 33.7 g/dL (32.0-36.0); Mean Corpuscular Volume 90.9 fL (80.0-100.0); Monocytes # (auto) 0.5 10 ^3/uL (0-1.3); Monocytes % (auto) 7.1 % (0.0-12.0); Neutrophils # (auto) 2.8 10 ^3/uL (1.6-8.6); Nucleated Red Blood Cells % 0.1 %; Platelet Count (auto) 217 10^3/uL (140-450); Red Blood Cells 4.78 10^6/uL (4.0-5.20); Red Cell Distribution Width 13.3 % (11.8-14.3); White Blood Cell 6.7 10^3/uL (4.4-10.8)
[2025-02-12 08:08] LABS: Protein, Urine 15.5 mg/dL (1-14)
[2025-02-12 08:10] LABS: Creatinine, Urine 95.25 mg/dL (30.0-125.0); Urine Protein/Creatinine Ratio 0.16
[2025-02-12 08:17] LABS: Alanine Aminotransferase 20 U/L (7-40); Albumin 4.4 g/dL (3.2-4.8); Alkaline Phosphatase 101 U/L (46-116); Anion Gap 10 (5-15); Aspartate Aminotransferase 17 U/L (<34); BUN/Creatinine Ratio 19.7 (10.0-20.0); Bilirubin, Total 0.6 mg/dL (0.2-1.0); Blood Urea Nitrogen 14 mg/dL (9-23); Calcium 9.6 mg/dL (8.7-10.4); Carbon Dioxide 25 mmol/L (20-31); Cholesterol 162 mg/dL (< 200); HDL Cholesterol 49 mg/dL (40-59); Potassium 4.2 mmol/L (3.5-5.1); Sodium 143 mmol/L (136-145); Triglycerides 102 mg/dL (< 150)
[2025-02-12 08:19] LABS: Chloride 108 mmol/L (98-107); Glucose 107 mg/dL (74-106); LDL Cholesterol 106 mg/dL (< 100)
== END 2025-02-12 17:00 | disposition home or self-care (01) ==
LOC: LAB 07:10
PROVIDERS: ATTEND Internal Medicine Hematology & Oncology
DX: E11.9 Type 2 diabetes mellitus without complications (principal)
CPT/HCPCS: 36415; 80053; 80061; 82043; 82570; 83036; 84156; 84439; 84443; 85025

== ENCOUNTER 2025-02-24 07:36 | Outpatient (CLI) | payer OTHER | END 2025-02-24 17:00 | disposition home or self-care (01) | LOC: LAB 07:36 | PROVIDERS: ATTEND Internal Medicine Hematology & Oncology | DX: E11.9 Type 2 diabetes mellitus without complications (principal) | CPT/HCPCS: 82270 ==

== ENCOUNTER 2025-05-04 19:33 | Emergency (ER) | payer OTHER ==
[2025-05-04 19:34] VITALS: BP 167/105; RESP 18; O2SAT 97
[2025-05-04 20:19] LABS: Hematocrit 41.8 % (36.0-46.0); Hemoglobin 14.4 g/dL (12.2-16.2); Mean Corpuscular Hemoglobin 31.7 pg (28.0-32.0); Mean Corpuscular Volume 91.7 fL (80.0-100.0); Nucleated Red Blood Cells % 0.1 %
[2025-05-04 20:37] LABS: Alanine Aminotransferase 22 U/L (7-40); Alkaline Phosphatase 110 U/L (46-116); Anion Gap 10 (5-15); BUN/Creatinine Ratio 19.4 (10.0-20.0); Blood Urea Nitrogen 14 mg/dL (9-23); Calcium 8.9 mg/dL (8.7-10.4); Carbon Dioxide 25 mmol/L (20-31); Potassium 3.6 mmol/L (3.5-5.1); Sodium 142 mmol/L (136-145); Total Protein 7.1 g/dL (5.7-8.2)
[2025-05-04 20:38] LABS: Albumin 4.3 g/dL (3.2-4.8); Bilirubin, Total 0.3 mg/dL (0.2-1.0); Chloride 107 mmol/L (98-107); Glucose 121 mg/dL (74-106)
--- NOTE | 2025-05-04 21:03 | DVH ---
EXAM: XY CHEST PORTABLE CLINICAL HISTORY: cp TECHNIQUE: Single AP view of the chest WID: COMPARISON: CT CHEST WITH CONTRAST on DOS: 02/10/25, XY CHEST PORTABLE on DOS: 02/09/25 FINDINGS: Lines and tubes: None Chest: The heart size and pulmonary vasculature is within normal limits. Calcified plaque projects over the aortic arch. No pleural effusion, pneumothorax, or consolidation. There is a lesion along the lateral mid right ch est which when compared to prior CT is a lipoma. The osseous structures are grossly intact. Multilevel thoracic spondylosis. IMPRESSION: 1. No acute cardiopulmonary abnormality.
--- NOTE | 2025-05-04 21:28 | ED.PDOC ---
HPI Comments HPI: This is a 69 year-old female who presents to the ED with a chief complaint of L sided chest pain radiating to the L upper extremity as of yesterday. Pt reports the pain as constant, with Ibuprofen taken for relief. Pt takes medicine as prescribed for HTN, Hyperlipidemia, and DM. Pt reports taking an Aspirin this morning. Pt has no further complaints or modifying factors at this time. Pt denies cough, SOB, dizziness, headache, N/V/D, fever, or chills. Past Medical History:HTN, Hyperlipidemia, DM Past Surgical History:Bladder Removal, Fat Lump Removal from the chest Social History: Denies ETOH, smoking, and drug use. Medications: Allergies: None Julio: félix HPI: Poor Historian. REVIEW OF SYSTEMS: CONSTITUTIONAL: Denies acute: fever, diaphoresis, chills, generalized weakness. HEAD: Denies acute: headache, photophobia Eyes: Denies acute: Double vision, vision loss, eye pain, eye discharge. EARS: Denies acute: tinnitus, hearing loss, ear discharge, ear pain, THROAT: Denies acute: sore throat, swelling, difficulty swallowing , pain with swallowing, change in voice. NECK: Denies acute: neck pain, neck swelling, stiff neck. HEART: Denies acute : palpitations, LUNGS: Denies acute: SOB, wheezing, cough, hemoptysis ABDOMEN: Denies acute: abdominal pain, Nausea, Vomiting, diarrhea, melena , hematemesis, hematochezia SKIN: Denies acute: rash, redness, lesions, itchiness. EXTREMITIES: Denies acute: calf pain, numbness, tingling, weakness, denies pain in extremity. Denies acute: Low back pain. Neuro: Denies acute: focal neurological deficit, motor or sensory focal neurological deficit, tremors, seizure like activity, confusion, dizziness, change in mental status, loss of bowel or bladder function, cauda equina like symptoms. : Denies acute: dysuria, hematuria, flank pain, increase in urinary frequency. PSYCH: Denies acute: hallucination, suicidal ideation, homicidal ideation. PHYSICAL EXAM: General: -----no---acute distress, awake and alert. Head: normocephalic, atraumatic. Neck: supple, trachea is midline, no swelling. Throat: Normal phonation. Eyes:, no erythema, no purulent discharge, no proptosis, no icterus. Heart: regular rate, regular rhythm, no significant murmur appreciated. Lungs: no apparent respiratory distress, Able to speak in full sentences. No wheezing, no rhonchi, no crackles. No stridors Clear to auscultation bilaterally. Abdomen: non tender to palpation, non distended, soft, no guarding, no rebound, + bowel sounds. Neuro: Awake, Alert, oriented to name, self, situation, follows commands GCS=15. Speech is normal. Skin: no petechia, no purpura, no cyanosis, non-pale, not jaundice. Lower extremities: --no - Pitting edema no deformity, no focal swelling, no calf TTP. Makes eye contact. moves all four extremities. Face: no apparent facial droop. Ambulating in the ED independently. ED COURSE: DISCLAIMER: This medical document was created using an electronic medical record system with voice recognition software and computerized dictation system. Although this document has been carefully reviewed, there might still be some phonetic and typographical errors. Occasional wrong-word or "sound-alike" substitutions may have occurred due to the inherent limitations of voice recognition software. These areas are purely typographical due to imperfections of the software programs and do not reflect any compromise in the patient's medical care. Please read the chart carefully and recognize, using context, where these substitutions have occurred. Chief Complaint: Chest Pain Time Seen by MD: 21:21 Primary Care Provider: BREANNA Reviewed Notes: Nurses Notes, Medications, Allergies Allergies: Coded Allergies: NO KNOWN ALLERGIES (Unverified , 11/25/20) Home Meds Active Scripts Gabapentin (Once-Daily) (Gabapentin) 300 Mg Tab, 300 MG PO Q6HP PRN, #30 TAB Prov:FERNANDO EVANS MD 02/10/25 Acetaminophen (Acetaminophen) 500 Mg Tab, 500 MG PO Q4HP PRN, #20 TAB Prov:MISHA LUTZ PAC 10/09/24 Cephalexin (KEFLEX CAPSULE) 250 Mg Cp, 1 CAP PO QID for 7 Days, #28 CAP Prov:MISHA LUTZ PAC 10/09/24 Acetaminophen W/ Codeine (Tylenol W/Cod #3) 1 Tab Tb, 1 TAB PO Q6HP PRN, #10 TAB Prov:MISHA LUTZ PAC 11/13/23 Phenylephrine-Shark Liver Oil- (Hemorrhoidal Suppositorie 0.25-3-85.5 %) 1 Sup Sup, [address] BID, #20 SUPP Prov:MISHA LUTZ PAC 11/13/23 Ibuprofen Micronized (Ibuprofen) 800 Mg Tab, 800 MG PO Q8HP PRN, #30 TAB Prov:MISHA LUTZ PAC 11/13/23 Nitrofurantoin Monohydrate Mac (Macrobid) 100 Mg Cap, 100 MG PO BID for 5 Days, #10 CAP Prov:MISHA LUTZ PAC 11/13/23 Sulfamethoxazole W/Trimethopri (Bactrim Ds Tablet) 1 Tab Tb, 1 TAB PO BID for 7 Days, #14 TAB Prov:LNAE KIM FRUIT VENDOR 01/13/23 Hydrocodone-Acetaminophen (Hydrocodone Bitartrate/AC 5-325 mg) 1 Tab Tab, 1 TAB PO Q6HPRN PRN, #14 TAB Prov:NHUNG MORA MD 11/30/20 Information Source: Patient Mode of Arrival: Ambulatory Severity: Moderate Timing: Days Duration: Since onset Prehospital treatment: None Location: Chest (L) Radiation: Shoulder (L) Onset: At Rest, With Light Exertion, With Heavy Exertion Cardiac Risk Factors: HTN, Diabetes Associated Signs and Symptoms: Other (chest pain ) EKG EKG : Pulse Rate (adult): 69 [place]: Normal Cardiac Rhythm: NSR Block: None Hypertrophy: None ST: Normal Was a procedure done? Was a procedure done?: No CP Differential Dx Differential Diagnosis: Anxiety / Panic Attack Differential Diagnosis: HTN Essential Differential Diagnosis: Chest Wall Pain X-Ray, Labs, Meds, VS Vital Signs Date Time Temp Pulse Resp B/P (MAP) Pulse Ox O2 Delivery O2 Flow Rate FiO2 05/04/25 21:14 72 05/04/25 19:44 80 05/04/25 19:34 85 18 167/105 97 Lab Test 05/04/25 20:38 05/04/25 19:54 05/04/25 19:48 Range/Units Troponin I High Sensitivity < 3 L 3 L </=34 ng/L White Blood Count 8.6 4.4-10.8 10^3/uL Red Blood Count 4.55 4.0-5.20 10^6/uL Hemoglobin 14.4 12.2-16.2 g/dL Hematocrit 41.8 36.0-46.0 % Mean Corpuscular Volume 91.7 80.0-100.0 fL Mean Corpuscular Hemoglobin 31.7 28.0-32.0 pg Mean Corpuscular Hemoglobin Concent 34.6 32.0-36.0 g/dL Red Cell Distribution Width 13.5 11.8-14.3 % Platelet Count 256 140-450 10^3/uL Mean Platelet Volume 7.9 6.9-10.8 fL Neutrophils (%) (Auto) 41.2 37.0-80.0 % Lymphocytes (%) (Auto) 49.6 10.0-50.0 % Monocytes (%) (Auto) 7.2 0.0-12.0 % Eosinophils (%) (Auto) 1.8 0.0-7.0 % Basophils (%) (Auto) 0.2 0.0-2.0 % Neutrophils # (Auto) 3.5 1.6-8.6 10 ^3/uL Lymphocytes # (Auto) 4.3 0.4-5.4 10 ^3/uL Monocytes # (Auto) 0.6 0-1.3 10 ^3/uL Eosinophils # (Auto) 0.2 0-0.8 10 ^3/uL Basophils # (Auto) 0 0-0.2 10 ^3/uL Nucleated Red Blood Cells 0.1 % Sodium Level 142 136-145 mmol/L Potassium Level 3.6 3.5-5.1 mmol/L Chloride Level 107 98-107 mmol/L Carbon Dioxide Level 25 20-31 mmol/L Anion Gap 10 5-15 Blood Urea Nitrogen 14 9-23 mg/dL Creatinine 0.72 0.550-1.02 mg/dL Glomerular Filtration Rate Calc 90 >90 mL/min BUN/Creatinine Ratio 19.4 10.0-20.0 Serum Glucose 121 H 74-106 mg/dL Calcium Level 8.9 8.7-10.4 mg/dL Total Bilirubin 0.3 0.2-1.0 mg/dL Aspartate Amino Transferase (AST) 20 13-40 U/L Alanine Aminotransferase (ALT) 22 7-40 U/L Alkaline Phosphatase 110 46-116 U/L Total Protein 7.1 5.7-8.2 g/dL Albumin 4.3 3.2-4.8 g/dL POC Glucose 140 H 70-106 mg/dl [facility] [id number] [facility] [address] Ph: [phone] DIAGNOSTIC IMAGING Diagnostic Imaging Report : [id number] Signed PATIENT: KRYSTLE GIBSON ACCT: [id number] UNIT: [id number] : 1955 LOC: ER ROOM / BED: / AGE / SEX: 69 / F ADM STATUS: REG ER SERVICE 51 ORDERING PHYSICIAN: MARINA TENA DO PROCEDURE(s): CXRP - CHEST PORTABLE REASON: cp ORDER NUMBER(s): [id number], ACCESSION NUMBER(s): [id number] EXAM: XY CHEST PORTABLE CLINICAL HISTORY: cp TECHNIQUE: Single AP view of the chest WID: COMPARISON: CT CHEST WITH CONTRAST on DOS: 02/10/25, XY CHEST PORTABLE on DOS: 02/09/25 FINDINGS: Lines and tubes: None Chest: The heart size and pulmonary vasculature is within normal limits. Calcified plaque projects over the aortic arch. No pleural effusion, pneumothorax, or consolidation. There is a lesion along the lateral mid right chest which when compared to prior CT is a lipoma. The osseous structures are grossly intact. Multilevel thoracic spondylosis. IMPRESSION: 1. No acute cardiopulmonary abnormality. Images Reviewed?: Images reviewed and evaluated by me Time of 1ST Reevaluation: 22:14 Reevaluation 1ST: Unchanged Patient Education/Counseling: Diagnosis, Treatment Family Education/Counseling: No Family Present Medical Screening: No EMC Exist At This Time SEPSIS Sepsis Screen Date sepsis recognized/suspect: May 04, 2025 Time Sepsis recognized/suspect: 1933 Recent Procedure: No On Antibiotic Therapy: No Respiratory Rate >20: No Heart Rate >90: No Temp<36 C (96.8 F) or >38.3 C: No SBP <90 or MAP <65 mmHG: No New Acute Mental Status Change: No Is the patient on CPAP, BIPAP,: No Physician Orders Troponin-I Hs (05/04/25 22:51) Electrocardigram (05/04/25 20:51) Electrocardigram (05/04/25 22:51) Train Control Technician (05/04/25 ) Chest Portable (05/04/25 19:52) Vital Signs Date Time Temp Pulse Resp B/P (MAP) Pulse Ox O2 Delivery O2 Flow Rate FiO2 05/04/25 21:14 72 05/04/25 19:44 80 05/04/25 19:34 85 18 167/105 97 Laboratory Tests Test 05/04/25 19:54 White Blood Count 8.6 10^3/uL (4.4-10.8) Critical Care Note Critical Care Time?: No Heart Score Heart Score: Heart Score Response (Comments) Value History N/A 0 EKG N/A 0 Age N/A 0 Risk Factors N/A 0 Troponin N/A 0 Total 0 I personally scribed for MARINA TENA DO ([email or web address]) on 05/04/25 at 21:28. Electronically submitted by Eboni Joe ([employer]). I personally scribed for MARINA TENA DO ([email or web address]) on 05/04/25 at 21:37. Electronically submitted by [employer] ([employer]). I personally scribed for MARINA TENA DO ([email or web address]) on 05/04/25 at 22:53. Electronically submitted by [employer] ([employer]). MARINA TENA DO May 04, 2025 21:28
--- NOTE | 2025-05-04 22:50 | ECG ---
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
[2025-05-04 22:53] VITALS: PULSE 69
--- NOTE | 2025-05-04 22:56 | ECG ---
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
--- NOTE | 2025-05-05 09:59 | ECG ---
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
== END 2025-05-05 01:05 | disposition left against medical advice (07) ==
LOC: ER 19:36
DX: R07.89 Other chest pain (principal); I10 Essential (primary) hypertension; E78.5 Hyperlipidemia, unspecified; E11.9 Type 2 diabetes mellitus without complications; Z79.899 Other long term (current) drug therapy
CPT/HCPCS: 36415; 71045; 80053; 82947; 82962; 84484; 85025; 93005

== ENCOUNTER 2025-08-12 07:35 | Outpatient (CLI) | payer OTHER ==
[2025-08-12 08:19] LABS: Urine Protein, UAD Negative (Negative)
[2025-08-12 08:20] LABS: Hematocrit 45.7 % (36.0-46.0); Hemoglobin 15.4 g/dL (12.2-16.2); Mean Corpuscular Hemoglobin 30.8 pg (28.0-32.0); Mean Corpuscular Volume 91.6 fL (80.0-100.0); Nucleated Red Blood Cells % 0.2 %
[2025-08-12 08:42] LABS: Alanine Aminotransferase 22 U/L (7-40); Albumin 4.3 g/dL (3.2-4.8); Alkaline Phosphatase 115 U/L (46-116); Anion Gap 10 (5-15); BUN/Creatinine Ratio 15.3 (10.0-20.0); Bilirubin, Total 0.8 mg/dL (0.2-1.0); Blood Urea Nitrogen 11 mg/dL (9-23); Calcium 9.3 mg/dL (8.7-10.4); Carbon Dioxide 27 mmol/L (20-31); Chloride 106 mmol/L (98-107); Cholesterol 167 mg/dL (< 200); HDL Cholesterol 58 mg/dL (40-59); Potassium 4.6 mmol/L (3.5-5.1); Sodium 143 mmol/L (136-145); Total Protein 7.3 g/dL (5.7-8.2); Triglycerides 114 mg/dL (< 150)
[2025-08-12 08:44] LABS: Glucose 112 mg/dL (74-106)
[2025-08-12 08:45] LABS: Microalb/Creat Ratio, Urine 4.0
== END 2025-08-12 17:00 | disposition home or self-care (01) ==
LOC: LAB 07:35
PROVIDERS: ATTEND Internal Medicine Hematology & Oncology
DX: I10 Essential (primary) hypertension (principal); E11.69 Type 2 diabetes mellitus with other specified complication; E11.42 Type 2 diabetes mellitus with diabetic polyneuropathy; I20.9 Angina pectoris, unspecified; M54.50 Low back pain, unspecified
CPT/HCPCS: 36415; 80053; 80061; 81001; 82043; 82570; 83036; 84439; 84443; 85025